=== PATIENT | male | born 1940 | race Caucasian/White ===

== ENCOUNTER 2019-05-28 16:55 | Emergency (ER) | payer MEDICARE ==
[~2019-05-28] VITALS: Ht 182.9 cm; Wt 99.8 kg
--- NOTE | 2019-05-28 17:11 | PHYS DOC ---
Past History Past Medical History: A-Fib, Bipolar, Cancer (prostate and colon), High Cholesterol, Hypertension, Other Additional Past Medical Histor: chronic kidney disease, (JACINTA ADAMS DO) Adult General Chief Complaint Chief Complaint: SLURRED SPEECH HPI HPI Patient is a 79-year-old male brought in by EMS due to facial droop and slurred speech. Per EMS report, patient was last seen normal at 10:30 this morning. History is limited from the patient, while he is oriented to person place and time. His recall of his medical conditions and surgeries is impaired. Patient denies any discomfort. Additional history from patient's employment assistant who sees him twice a week. She was with him from 8:30 to 10:30 this morning. He was at his normal self. This afternoon when called, this is a significant change from his usual baseline. She also notes he had chest pain last week, described as a tightness, but cannot be any more specific. He deferred seen a doctor at that time because he had an upcoming appointment.[] (JACINTA ADAMS DO) Review of Systems Review of Systems Constitutional: Denies fever or chills [] Eyes: Denies change in visual acuity, redness, or eye pain [] HENT: Denies nasal congestion or sore throat [] Respiratory: Denies cough or shortness of breath [] Cardiovascular: No chest pain or palpitations[] GI: Denies abdominal pain, nausea, vomiting, bloody stools or diarrhea [] : Denies dysuria or hematuria [] Musculoskeletal: Denies back pain or joint pain [] Integument: Denies rash or skin lesions [] Neurologic: Denies headache, focal weakness or sensory changes [] Endocrine: Denies polyuria or polydipsia [] All other systems were reviewed and found to be within normal limits, except as documented in this note. (JACINTA ADAMS DO) Physical Exam Physical Exam Constitutional: Well developed, well nourished, no acute distress, non-toxic appearance. [] HENT: Normocephalic, atraumatic, bilateral external ears normal, oropharynx moist, no oral exudates, nose normal. [] Eyes: PERRLA, EOMI, conjunctiva normal, no discharge. [] Neck: Normal range of motion, no tenderness, supple, no stridor. [] Cardiovascular:Heart rate regular rhythm, no murmur [] Lungs & Thorax: Bilateral breath sounds clear to auscultation [] Abdomen: Bowel sounds normal, soft, no tenderness, no masses, no pulsatile masses. [] Skin: Warm, dry, no erythema, no rash. [] Back: No tenderness, no CVA tenderness. [] Extremities: No tenderness, no cyanosis, no clubbing, ROM intact, no edema. [] Neurologic: Alert and oriented X 3, left facial droop is present.. [] Psychologic: Affect normal, judgement normal, mood normal. [] (JACINTA ADAMS DO) EKG EKG EKG shows an irregular rhythm, rate of 53 bpm, normal axis, QTC of 445 ms, no ST elevation. Interpreted by me at 1745.[] (JACINTA ADAMS DO) Radiology/Procedures Radiology/Procedures PROCEDURE: PORTABLE CHEST 1V AP chest x-ray HISTORY: Slurred speech. FINDINGS: Mild cardiomegaly. Aortic arch calcified plaque. No pneumothorax, pulmonary opacities or pleural effusions. At the lower left upper lobe overlapping the posterior sixth rib is a suspected 7 mm nodule it is uncertain if this is calcified or noncalcified as it overlaps the bone. IMPRESSION: No acute process. 7 mm left upper lobe pulmonary nodule. Consider further assessment with outpatient CT chest imaging. PROCEDURE: CT HEAD WO CONTRAST Exam: CT head INDICATION: Slurred speech TECHNIQUE: Sequential axial images through the head were obtained without the administration of IV contrast. Comparisons: None FINDINGS: No focal parenchymal lesion or hemorrhage is identified. There is no midline shift or sulcal effacement. Patchy hypodensity within the periventricular white matter The ventricular system is within normal limits without compression hydrocephalus. The basal cisterns are well maintained. The visualized portions of the paranasal sinuses and mastoid air cells are well-pneumatized. No acute fractures. IMPRESSION: Patchy hypodensity within the periventricular white matter, which is age indeterminate. If symptoms persist MRI is recommended for further evaluation.[] (JACINTA ADAMS DO) Radiology/Procedures STATUS: PRE ERORD. PHYSICIAN: JACINTA ADAMS DO REASON: slurred speech, left facial droop, last normal 10:30 AM PROCEDURE: CT ANGIOGRAPHY HEAD AND NECK CT angiography head and neck with contrast COMPARISON: CT head May 28, 2019. Stenosis calculations for CT, MR, and conventional angiography are based upon measurements of the distal ICA diameter in accordance with the NASCET methodology. Stenosis calculations for carotid ultrasound studies are derived from validated velocity criteria which are known to correlate with the NASCET methodology. PQRS statement: CT scans at this facility use dose reduction including either automated exposure control, iterative reconstructions, and /or weight based radiation dosing via mA and kV modification when appropriate to reduce radiation dose to as low as reasonably achievable. TECHNIQUE: Helical CT imaging head and neck with 3-D MIP and volume reconstructions of the arteries characterize vascular anatomy and pathology with 60 mL Omnipaque 350 intravenous contrast. HISTORY: Slurred speech. Left facial droop. FINDINGS: Calcified plaque of the aortic arch no ostial stenosis of the vessels from the aorta evident. Codominant vertebral arteries. Calcified plaque with mild to moderate stenosis of up to 50 percent of the bilateral vertebral artery ostium. There is expansile hypodense soft tissue density mass spanning the left C4-C5 neural foramen to a significant degree with a probable additional smaller mass with less expansion of the adjacent C3-C4 neural foramen raising suspicion of a neurofibroma. This presumed neurofibroma abuts and compresses the left vertebral artery with high-grade stenosis of 70 percent and possibly greater, no occlusion. Right carotid artery calcified plaque at the bifurcation contributes to stenosis of 60-70 percent with a minimum luminal diameter 2 mm relative to the more normal diameter distally of 6 mm. No occlusion, thrombus or dissection. Left carotid artery demonstrates calcified plaque at the bifurcation contributing to mild stenosis of less than 50 percent. No thrombus, dissection or occlusion. Cervical disc osteophytes and uncovertebral and facet spurs with spinal canal and neural foraminal stenoses. Head findings: There is limited contrast bolus density which may decrease sensitivity to detect small vessel pathology however diagnostic information still remains. Left supraclinoid internal carotid artery demonstrates a 2 mm saccular aneurysm near the takeoff of the ophthalmic artery coronal image 58, sagittal image 46 and thin axial images 250-257. Calcified plaque cavernous carotid arteries with less than 50 percent stenosis. The anterior inferior cerebellar arteries are hypoplastic. type left posterior cerebral artery. No high-grade stenosis, thrombus or occlusion of the intracranial arteries. IMPRESSION: 1. 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 This could be a plexiform neurofibromas as it may communicate across more than 1 nerve at the C3-C4 and C4-C5 foramina. This could be further assessed with outpatient MR imaging. 2. 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 3. No large vessel occlusion. 4. Right cervical carotid artery plaque with significant stenosis of 60-70 percent of the proximal internal carotid. 5. Left cervical carotid artery plaque with mild stenosis of less than 50 percent of the proximal internal carotid. Electronically signed by: Omkar Pearson MD (05/28/2019 6:54 PM) [facility] [place] (MARYANN BURNETT MD) Course & Med Decision Making Course & Med Decision Making Pertinent Labs and Imaging studies reviewed. (See chart for details) ED course: Patient arrived, was placed in bed, and tolerated exam well. He was transported to and from [place]. While he was in [place] his part-time home health nurse arrived who provide the additional information noted in the history of present illness. Given that he was last seen normal at 30 a.m. today, jose juan was not a candidate for thrombolytic therapy. Patient care was endorsed to the nighttime physician at 1800 with laboratory testing and additional imaging pending.[] (JACINTA ADAMS DO) Course & Med Decision Making 1. Mental Status change- Appears to be global- as if oversedated 2. Neck Mass 3. Elevated Creat. 1.5 4. CHF BNP 4322 5. Anemia 12.6 Pt. accepted at after discussions with Transfer center. Discussion with Dr. Walker Pt. accepted to service of Dr. Yip at room [id number] (MARYANN BURNETT MD) Dragon Disclaimer Dragon Disclaimer This electronic medical record was generated, in whole or in part, using a voice recognition dictation system. (JACINTA ADAMS DO) Departure Departure: Disposition: 01 HOME/RESIDENCE PRIOR TO ADM Condition: STABLE Dragon Disclaimer This chart was dictated in whole or in part using Voice Recognition software in a busy, high-work load, and often noisy Emergency Department environment. It may contain unintended and wholly unrecognized errors or omissions. (MARYANN BURNETT MD) JACINTA ADAMS DO May 28, 2019 17:11 MARYANN BURNETT MD May 28, 2019 19:49
--- NOTE | 2019-05-28 17:36 | RAD ---
Exam: CT head INDICATION: Slurred speech TECHNIQUE: Sequential axial images through the head were obtained without the administration of IV contrast. Comparisons: None FINDINGS: No focal parenchymal lesion or hemorrhage is identified. There is no midline shift or sulcal effacement. Patchy hypodensity within the periventricular white matter The ventricular system is within normal limits without compression hydrocephalus. The basal cisterns are well maintained. The visualized portions of the paranasal sinuses and mastoid air cells are well-pneumatized. No acute fractures. IMPRESSION: Patchy hypodensity within the periventricular white matter, which is age indeterminate. If symptoms persist MRI is recommended for further evaluation. Exposure: One or more of the following in the visualized dose reduction techniques were utilized for this examination: 1. Automated exposure control 2. Adjustment of the MA and/or KV according to patient size Use of iterative of reconstructive technique Electronically signed by: Aleja Villegas MD (05/28/2019 5:33 PM) [facility]
--- NOTE | 2019-05-28 17:39 | RAD ---
AP chest x-ray HISTORY: Slurred speech. FINDINGS: Mild cardiomegaly. Aortic arch calcified plaque. No pneumothorax, pulmonary opacities or pleural effusions. At the lower left upper lobe overlapping the posterior sixth rib is a suspected 7 mm nodule it is uncertain if this is calcified or noncalcified as it overlaps the bone. IMPRESSION: No acute process. 7 mm left upper lobe pulmonary nodule. Consider further assessment with outpatient CT chest imaging. Electronically signed by: Omkar Pearson MD (05/28/2019 5:36 PM) [place] [id number]
[2019-05-28 17:45] LABS: BASO % 0 % (0-3); EOS # 0.2 x10^3/uL (0.0-0.7); EOS % 3 % (0-3); HEMATOCRIT 36.7 % (39.0-53.0); HEMOGLOBIN 12.6 g/dL (13.0-17.5); LYMPH # 1.8 x10^3/uL (1.0-4.8); LYMPH % 30 % (24-48); MEAN CORPUSCULAR HEMOGLOBIN 32 pg (25-35); MEAN CORPUSCULAR HGB CONC 34 g/dL (31-37); MEAN CORPUSCULAR VOLUME 94 fL (79-100); MONO # 0.5 x10^3/uL (0.0-1.1); MONO % 9 % (0-9); NEUT # 3.3 x10^3uL (1.8-7.7); NEUT % 57 % (31-73); PLATELET COUNT 178 x10^3/uL (140-400); RED BLOOD COUNT 3.92 x10^6/uL (4.30-5.70); RED CELL DISTRIBUTION WIDTH 14.6 % (11.5-14.5); WHITE BLOOD COUNT 5.8 x10^3/uL (4.0-11.0)
[2019-05-28] MEDS ORDERED: IOHEXOL 350 MG/ML 100 ML VIAL. IV ONE (17:45)
--- NOTE | 2019-05-28 18:04 | EKG ---
[address] [address] Test Date: 2019-05-28 Test Time: 17:36:44 Pat Name: CLAUDY GUARDADO Department: Room: Gender: M Visual Effects Artist: : 1940 Requested By: JACINTA ADAMS Order Number: [id number] Reading MD: Measurements Intervals [place] Rate: 53 P: TN: QRS: 31 QRSD: 76 T: 35 QT: 472 QTc: 445 Interpretive Statements IRREGULAR RHYTHM, NO P-WAVE FOUND T ABNORMALITY IN ANTERIOR LEADS ABNORMAL ECG RI6.01 No previous ECG available for comparison
[2019-05-28 18:05] LABS: ALBUMIN 3.7 g/dL (3.4-5.0); ALBUMIN/GLOBULIN RATIO 1.2 (1.0-1.7); CALCIUM 9.2 mg/dL (8.5-10.1); CREATININE 1.5 mg/dL (0.7-1.3); GFR 44.9; POTASSIUM 3.8 mmol/L (3.5-5.1); TOTAL BILIRUBIN 0.7 mg/dL (0.2-1.0); TOTAL PROTEIN 6.8 g/dL (6.4-8.2)
--- NOTE | 2019-05-28 18:56 | RAD ---
CT angiography head and neck with contrast COMPARISON: CT head May 28, 2019. Stenosis calculations for CT, MR, and conventional angiography are based upon measurements of the distal ICA diameter in accordance with the NASCET methodology. Stenosis calculations for carotid ultrasound studies are derived from validated velocity criteria which are known to correlate with the NASCET methodology. PQRS statement: CT scans at this facility use dose reduction including either automated exposure control, iterative reconstructions, and /or weight based radiation dosing via mA and kV modification when appropriate to reduce radiation dose to as low as reasonably achievable. TECHNIQUE: Helical CT imaging head and neck with 3-D MIP and volume reconstructions of the arteries characterize vascular anatomy and pathology with 60 mL Omnipaque 350 intravenous contrast. HISTORY: Slurred speech. Left facial droop. FINDINGS: Calcified plaque of the aortic arch no ostial stenosis of the vessels from the aorta evident. Codominant vertebral arteries. Calcified plaque with mild to moderate stenosis of up to 50 percent of the bilateral vertebral artery ostium. There is expansile hypodense soft tissue density mass spanning the left C4-C5 neural foramen to a significant degree with a probable additional smaller mass with less expansion of the adjacent C3-C4 neural foramen raising suspicion of a neurofibroma. This presumed neurofibroma abuts and compresses the left vertebral artery with high-grade stenosis of 70 percent and possibly greater, no occlusion. Right carotid artery calcified plaque at the bifurcation contributes to stenosis of 60-70 percent with a minimum luminal diameter 2 mm relative to the more normal diameter distally of 6 mm. No occlusion, thrombus or dissection. Left carotid artery demonstrates calcified plaque at the bifurcation contributing to mild stenosis of less than 50 percent. No thrombus, dissection or occlusion. Cervical disc osteophytes and uncovertebral and facet spurs with spinal canal and neural foraminal stenoses. Head findings: There is limited contrast bolus density which may decrease sensitivity to detect small vessel pathology however diagnostic information still remains. Left supraclinoid internal carotid artery demonstrates a 2 mm saccular aneurysm near the takeoff of the ophthalmic artery coronal image 58, sagittal image 46 and thin axial images 250-257. Calcified plaque cavernous carotid arteries with less than 50 percent stenosis. The anterior inferior cerebellar arteries are hypoplastic. type left posterior cerebral artery. No high-grade stenosis, thrombus or occlusion of the intracranial arteries. IMPRESSION: 1. 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 This could be a plexiform neurofibromas as it may communicate across more than 1 nerve at the C3-C4 and C4-C5 foramina. This could be further assessed with outpatient MR imaging. 2. 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 3. No large vessel occlusion. 4. Right cervical carotid artery plaque with significant stenosis of 60-70 percent of the proximal internal carotid. 5. Left cervical carotid artery plaque with mild stenosis of less than 50 percent of the proximal internal carotid. Electronically signed by: Omkar Pearson MD (05/28/2019 6:54 PM) [facility]
[2019-05-28 19:30] VITALS: BP 138/84
[2019-05-28] MEDS ORDERED: FUROSEMIDE 40 MG/4 ML VIAL IVP ONE (20:30)
[2019-05-28 20:47] LABS: BARBITURATES NEG (NEG); BENZODIAZEPINES NEG (NEG); CANNABINOIDS NEG (NEG); COCAINE NEG (NEG); METHADONE NEG (NEG); OPIATES NEG (NEG); PHENCYCLIDINE NEG (NEG)
[2019-05-28 20:51] LABS: BACTERIA,URINE 0 /HPF (0-FEW); BILIRUBIN,URINE NEG (NEG); CLARITY,URINE CLEAR; COLOR,URINE YELLOW; GLUCOSE,URINE NEG (NEG); NITRITE,URINE NEG (NEG); RBC,URINE 0 /HPF (0-2); SQUAMOUS EPITHELIAL CELL,UR OCC /LPF; UROBILINOGEN,URINE 0.2 mg/dL (0.2 mg/dL); WBC,URINE OCC /HPF (0-4)
[2019-05-28 20:55] LABS: AMPHETAMINE/METHAMPHETAMINE NEG (NEG)
== END 2019-05-28 22:48 | disposition short-term general hospital (02) ==
LOC: ER 19:00
DX: R41.82 Altered mental status, unspecified (principal); R22.1 Localized swelling, mass and lump, neck; R47.81 Slurred speech; R29.810 Facial weakness; D64.9 Anemia, unspecified; R79.89 Other specified abnormal findings of blood chemistry; I48.91 Unspecified atrial fibrillation; E78.00 Pure hypercholesterolemia, unspecified; F31.9 Bipolar disorder, unspecified; I13.0 Hypertensive heart and chronic kidney disease with heart failure and stage 1 through stage 4 chronic kidney disease, or unspecified chronic kidney disease; N18.9 Chronic kidney disease, unspecified; I50.9 Heart failure, unspecified
CPT/HCPCS: 36415; 70450; 70496; 70498; 71045; 80053; 80307; 81001; 83735; 83880; 84484; 85025; 85610; 85730; 93005; 96374; 99285; J1940; Q9967